=== PATIENT | female | born 1980 | race African-American/Black ===

== ENCOUNTER 2017-05-24 07:30 | Inpatient (IN) | payer OTHER ==
[2017-05-24 09:59] LABS: INR 0.99 (0.82-1.09); PROTHROMBIN TIME (PATIENT) 11.2 SEC (9.98-11.88)
[2017-05-24 10:00] LABS: BASOPHIL 0.6 % (0-2.0); EOSINOPHIL 0.6 % (0-4.5); MCH 27.5 pg (25.7-33.7); MCHC 33.2 g/dl (32.0-36.0); MEAN CELL VOLUME 83.1 fl (80-96); MEAN PLT VOLUME 8.4 fl (7.5-11.1); PLATELET COUNT 239 K/MM3 (134-434); WHITE BLOOD COUNT 4.9 K/mm3 (4.0-10.0)
[2017-05-24 10:02] LABS: ACTIVATED PTT 27.9 SECONDS (26.9-34.4)
[2017-05-24 10:03] VITALS: BMI 47.2
[2017-05-24 10:10] LABS: URIC ACID 4.7 mg/dL (2.6-7.2)
[2017-05-24 10:21] LABS: ANION GAP 9 (8-16); CALCIUM 8.4 mg/dL (8.5-10.1); CO2 23 mmol/L (21-32); CREATININE 0.5 mg/dL (0.55-1.02); GLUCOSE,RANDOM 70 mg/dL (74-106)
[2017-05-24] MEDS ORDERED: ELECTROLYTE-148 SOLN 1,000 ML IV SCH (10:45)
--- NOTE | 2017-05-24 11:08 | HP ---
Past Medical History - Primary Care Physician PCP:: Ruben Green - Admission Chief Complaint: 39 weeks, labor,AMA History of Present Illness: 37 edc by sono 05/28/17 39 weeks, c/o contraction, no rom, no bleeding , cx 5 cm 80 vx -2 mi bulging , fhr cat 1, contraction regular. History Source: Patient Limitations to Obtaining History: No Limitations - Past Medical History ...: 5 ...Para: 3 ...Term: 3 ...: 0 ...Spon : 0 ...Induced : 1 ...Multiple Gestation: 0 ...LMP: 08/21/16 ... Weeks Gestation by Dates: 39.3 ...EDC by Dates: 05/28/17 ...EDC by Sono: 05/28/17 - Past Surgical History Hx Myomectomy: No Hx Transabdominal Cerclage: No - Smoking History Smoking history: Never smoked Have you smoked in the past 12 months: No - Alcohol/Substance Use Hx Alcohol Use: No - Social History History of Recent Travel: No Home Medications - Allergies Allergies/Adverse Reactions: Allergies Allergy/AdvReac Type Severity Reaction Status Date / Time quinine [Quinine] Allergy Intermediate Hives Verified 05/24/17 08:58 - Home Medications Home Medications: Ambulatory Orders NK [No Known Home Medication] 05/24/17 Review of Systems - Review of Systems Constitutional: reports: No Symptoms Eyes: reports: No Symptoms HENT: reports: No Symptoms Neck: reports: No Symptoms Cardiovascular: reports: No Symptoms Gastrointestinal: reports: No Symptoms Genitourinary: reports: No Symptoms Breasts: reports: No Symptoms Reported Musculoskeletal: reports: No Symptoms Integumentary: reports: No Symptoms Neurological: reports: No Symptoms Endocrine: reports: No Symptoms Hematology/Lymphatic: reports: No Symptoms Psychiatric: reports: No Symptoms Physical Exam - Maternity Vital Signs: Vital Signs Temperature 97.5 F L 05/24/17 10:16 Pulse Rate 76 05/24/17 10:16 Respiratory Rate 20 05/24/17 10:16 Blood Pressure 151/93 05/24/17 10:16 O2 Sat by Pulse Oximetry (%) Constitutional: Yes: Well Nourished, No Distress, Calm Eyes: Yes: WNL, Conjunctiva Clear, EOM Intact HENT: Yes: WNL, Atraumatic, Normocephalic Neck: Yes: WNL, Supple, Trachea Midline Cardiovascular: Yes: WNL, Regular Rate and Rhythm Breast(s): Yes: WNL - Abdominal Exam/OB Fundal Height: 38 Number of Fetuses: Single Presentation: Vertex Contractions: Yes Regularity: Regular Intensity: Strong Monitor Mode: External Heart Rate Location: [facility] Category: I Accelerations: Uniform Decelerations: Variable - Vaginal Exam/OB Vaginal Bleediing: No Speculum Exam: No Dilatation (cm): 5 cm Effacement (%): 80 Amniotic Membrane Status: Bulging Presentation: Vertex/Position Station: -2 - Physical Exam Musculoskeletal: Yes: WNL Extremities: Yes: WNL Edema: Yes Edema: LLE: Trace, RLE: Trace Deep Tendon Reflex Grade: Normal +2 Psychiatric: Yes: WNL - Labs Lab Results: CBC, BMP 05/24/17 09:30 05/24/17 09:30 Hemorrhage Risk Assessment - Risk Factors Medium Risk Factors: Yes: Multiple gestation Risk Score: 1 Risk Level: Medium Risk Problem List - Problems (1) with 39 completed weeks gestation Code(s): Z3A.39 - 39 WEEKS GESTATION OF (2) Labor established Code(s): JRV0038 - Assessment/Plan admit, FHM, pain management
[2017-05-24 11:13] LABS: HIV 1 & 2 AB NEGATIVE; HIV 1 AGp24 NEGATIVE
[2017-05-24 11:28] LABS: URINE APPEARANCE CLEAR; URINE BILIRUBIN NEGATIVE (NEGATIVE); URINE BLOOD 2+ (NEGATIVE); URINE COLOR YELLOW; URINE GLUCOSE (UA) NEGATIVE (NEGATIVE); URINE KETONE NEGATIVE (NEGATIVE); URINE NITRITE NEGATIVE (NEGATIVE); URINE PROTEIN NEGATIVE (NEGATIVE); URINE UROBILINOGEN NEGATIVE mg/dL (0.2-1.0)
[2017-05-24 11:31] LABS: URINE MUCUS RARE; URINE RBC 1 /hpf (0-3); URINE WBC <1 /hpf (3-5)
--- NOTE | 2017-05-24 12:41 | PN ---
Progress Note (short form) - Note Progress Note: cx 9 cm, 100, vc -1 , arom , mec af , fhr cat 1, will deliver shortly Problem List - Problems (1) with 39 completed weeks gestation Code(s): Z3A.39 - 39 WEEKS GESTATION OF (2) Labor established Code(s): VHA9292 -
[2017-05-24] MEDS ORDERED: BUPIVACAINE HCL/PF 0.5% (5MG/ML) 10 ML VIAL ONE (12:55)
--- NOTE | 2017-05-24 13:00 | PN ---
Progress Note (short form) - Note Progress Note: cx 9 cm 100 vx 0 mr, difficult to monitor fhr with exrternal monitor because obesity , scalp electrode applied Problem List - Problems (1) with 39 completed weeks gestation Code(s): Z3A.39 - 39 WEEKS GESTATION OF (2) Labor established Code(s): [id number] -
[2017-05-24] MEDS ORDERED: WITCH HAZEL 50% (TUCKS) 40 PAD/JAR PAD TP PRN (14:02)
[2017-05-24] MEDS ORDERED: BISACODYL 10 MG SUPP.RECT RC PRN (14:02)
[2017-05-24] MEDS ORDERED: BENZOCAINE 28 GM HEMORRHOIDAL OINTMENT TP PRN (14:02)
[2017-05-24] MEDS ORDERED: oxyCODONE HCL 5 MG TABLET PO PRN (14:02)
[2017-05-24] MEDS ORDERED: BENZOCAINE 20% 57 GM BOTTLE TP PRN (14:02)
[2017-05-24] MEDS ORDERED: METHYLERGONOVINE MALEATE 0.2 MG/1 ML AMP IM PRN (14:02)
[2017-05-24] MEDS ORDERED: D5W-LR W/ 20 UNITS OXYTOCIN 1,000 ML IV SCH (14:15)
[2017-05-24 14:47] LABS: ARTERIAL BLOOD GAS BASE EXCESS -1.7 meq/l (-2-2); ARTERIAL BLOOD GAS HCO3 23.7 meq/L (22-26); ARTERIAL BLOOD GAS pH 7.34 (7.35-7.45)
[2017-05-24 14:48] LABS: PT. ON O2? NO
[2017-05-24 14:49] LABS: ARTERIAL BLOOD GAS BASE EXCESS -1.6 meq/l (-2-2); ARTERIAL BLOOD GAS HCO3 23.6 meq/L (22-26); ARTERIAL BLOOD GAS pH 7.35 (7.35-7.45)
[2017-05-24 14:49] LABS: ARTERIAL BLD GAS O2 SATURATION 68.8 % (90-98.9); ARTERIAL BLOOD GAS PO2 33.9 mmHg (80-100)
[2017-05-24 14:50] LABS: PT. ON O2? NO
[2017-05-24 14:51] LABS: ARTERIAL BLD GAS O2 SATURATION 69.1 % (90-98.9); ARTERIAL BLOOD GAS PO2 34.1 mmHg (80-100)
[2017-05-24] MEDS ORDERED: LABETALOL HCL 200 MG TABLET (FP) PO PRN (15:44)
[2017-05-24] MEDS ORDERED: LABETALOL HCL 200 MG TABLET (FP) PO ONE (15:45)
[2017-05-24] MEDS: ACETAMINOPHEN 325 MG TABLET (FP) PO PRN (16:17)
[2017-05-24] MEDS: IBUPROFEN 600 MG TABLET (FP) PO PRN (16:17)
[2017-05-24 17:16] LABS: URINE LEUK ESTERASE Negative (NEGATIVE)
[2017-05-24] MEDS ORDERED: CARBOPROST TROMETHAMINE 250 MCG/ML AMPUL IM ONE (17:48)
[2017-05-24] MEDS: FERROUS SO4 325 MG TABLET (FP) PO SCH (22:59)
[2017-05-25 07:38] LABS: BASOPHIL 0.4 % (0-2.0); EOSINOPHIL 0.8 % (0-4.5); MCH 27.2 pg (25.7-33.7); MCHC 32.8 g/dl (32.0-36.0); MEAN CELL VOLUME 82.9 fl (80-96); MEAN PLT VOLUME 8.3 fl (7.5-11.1); NEUTROPHILS 57.9 % (42.8-82.8); PLATELET COUNT 191 K/MM3 (134-434); RDW 15.5 % (11.6-15.6)
--- NOTE | 2017-05-25 08:24 | PN ---
Progress Note (short form) - Note Progress Note: ppd 1 doing well, no active vaginal bleeding,no dizziness . had bleeding lasdt night 300cc clots removed , hemobate was given CBC, BMP 05/25/17 07:00 05/24/17 09:30 Last Vital Signs Temp Pulse Resp BP Pulse Ox 98.7 F 65 20 130/87 100 05/25/17 05:39 05/25/17 05:39 05/25/17 05:39 05/25/17 05:39 05/24/17 16:02 abdomen soft, non tender ,no cva uterus firm, non tender lochia mild . no excess vaginal bleeding no calf tenderness plan ambulate, iron vit Problem List - Problems (1) with 39 completed weeks gestation Code(s): Z3A.39 - 39 WEEKS GESTATION OF (2) Labor established Code(s): [id number] -
[2017-05-25] MEDS: FERROUS SO4 325 MG TABLET (FP) PO SCH ×2 (09:02→17:31)
[2017-05-25] MEDS: PRENATAL VITAMINS W/ FOLIC ACID TABLET (FP) PO SCH (09:02)
[2017-05-25] MEDS ORDERED: DIPHTH,PERTUSS(ACELL),TET 0.5 ML DISP.SYRIN IM ONE (14:00)
[2017-05-25] MEDS: IBUPROFEN 600 MG TABLET (FP) PO PRN (15:33)
[2017-05-25] MEDS: ACETAMINOPHEN 325 MG TABLET (FP) PO PRN (15:35)
[2017-05-25] MEDS: FENTANYL/BUPIVACAINE/NS/PF - PCEA - 50 ML DISP.SYRIN EP SCH (19:12)
[2017-05-25] MEDS ORDERED: SENNOSIDES/DOCUSATE COMBO (SENNA PLUS) TABLET (UD) PO PRN (22:00)
[2017-05-26] MEDS: FERROUS SO4 325 MG TABLET (FP) PO SCH (08:30)
--- NOTE | 2017-05-26 08:33 | DS ---
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: Vital Signs Temperature 97.9 F 05/25/17 22:00 Pulse Rate 80 05/26/17 06:00 Respiratory Rate 20 05/26/17 06:00 Blood Pressure 136/76 05/26/17 06:00 O2 Sat by Pulse Oximetry (%) 100 05/24/17 16:02 Constitutional: Yes: Well Nourished, No Distress HENT: Yes: WNL, Atraumatic, Normocephalic Neck: Yes: WNL, Supple Cardiovascular: Yes: Regular Rate and Rhythm Respiratory: Yes: WNL Gastrointestinal: Yes: WNL, Normal Bowel Sounds, Soft Pelvis: Yes: WNL External Genitalia: Yes: Normal Vaginal Exam: Yes: Normal Cervix: Yes: Normal Uterus: Yes: Normal ....Post : Yes: Uterus firm, Uterus non-tender Breast(s): Yes: WNL Musculoskeletal: Yes: WNL Extremities: Yes: WNL Integumentary: Yes: WNL Neurological: Yes: WNL, Alert, Oriented ...Motor Strength: WNL Psychiatric: Yes: WNL, Alert, Oriented Labs: CBC, BMP 05/25/17 07:00 05/24/17 09:30 Delivery - Delivery Type of Anesthesia: Epidural EBL (cc): 300 Delivery, Single - Stages of Labor Date 1st Stage Initiatied: 05/24/17 Time 1st Stage Initiated: 05:00 Date 2nd Stage Initiated: 05/24/17 Time 2nd Stage Initiated: 13:25 Date of Delivery: 05/24/17 Time of Delivery: 13:52 Time Placenta Delivered: 13:55 - 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: Yes Name: Juan Luis Zimmerman Gender: Male Weight: 7 lb 9 oz Position: Left, OA Total Hours ROM (Hrs/Mins): 1hr/23mins - 1 Minute Total Score: 9 5 Minutes Total Score: 9 - [place] Feeding Plan Initial Plan: Elected not to breastfeed exclusively throughout hospitalization Discharge Summary Reason For Visit: LABOR ADMIT Current Active Problems Labor established (Acute) with 39 completed weeks gestation (Acute) Condition: Good - Instructions Diet, Activity, Other Instructions: Physical activity Resume your normal everyday activity as tolerated no heavy lifting or exercise until seen by your surgeon. You may walk unlimited ifrah of and climb stairs. You may resume driving the car when you feel safe and comfortable behind the wheel. No sexual activity as instructed.Asked to monitor BPs at home and report to practice BP higher than 140/90, Right upper quadrant pain, visual changes, face and/or hand swelling Wound care If you have a bandage, leave it on, and keep dry for 48-72 hours. After that time discard the outer bandage. If they are tapes on the skin under the out of bandage leave them in place. They will peel off in the next 7 to 10 days. Do Not Peel them off. You may shower the day after surgery. If there are tapes present on the skin, you may shower over them. Diet There are no dietary restrictions. Eat healthy, high-fiber foods. Drink 6 to 8 glasses of liquid each day. This will assist in keeping your bowels are regular. Pain management You may take Tylenol or acetaminophen or Ibuprofen (for example, Motrin, Advil etc.) from my pain prescription medication is ordered should be taken as prescribed for moderate to severe pain. Call MD for any of the following: Severe pain not relieved by medication Fever of 101 or higher Excessive bleeding or drainage on dressing Inability to urinate Referrals: Ruben Green MD [Staff Physician] - Disposition: HOME - Home Medications Comprehensive Discharge Medication List: Ambulatory Orders NK [No Known Home Medication] 05/24/17
[2017-05-26] MEDS: PRENATAL VITAMINS W/ FOLIC ACID TABLET (FP) PO SCH (10:12)
[2017-05-26 15:39] VITALS: BP 137/69; PULSE 81; TEMP 98.8
== END 2017-05-26 15:00 | disposition home or self-care (01) | DRG 774 ==
LOC: JDEL 07:30 → JLDR 08:40 → J3W 16:03
PROVIDERS: ADMIT Obstetrics & Gynecology; ATTEND Obstetrics & Gynecology
PROC: 10E0XZZ Delivery of Products of Conception, External Approach (ICD-10-PCS; principal; 2017-05-24)
DX: O99.214 Obesity complicating childbirth (principal); O72.1 Other immediate postpartum hemorrhage; Z68.42 Body mass index [BMI] 45.0-49.9, adult; E66.8 Other obesity; Z3A.39 39 weeks gestation of pregnancy; Z37.0 Single live birth
CPT/HCPCS: 36415; 36600; 59025; 59409; 71020-TC; 80048; 81003; 81015; 82803; 82977; 83010; 84450; 84460; 84550; 85025; 85044; 85610; 85730; 86593; 86850; 86900; 86901; 87389; 90715